=== PATIENT | female | born 2000 | race American Indian/Alaskan Native ===

== ENCOUNTER 2020-04-05 13:18 | Outpatient (CLI) | payer OTHER ==
[2020-04-05] MEDS ORDERED: ALBUTEROL 2.5 MG/3 ML NEBU IH ONE (14:20)
== END 2020-04-05 13:19 | disposition home or self-care (01) ==
LOC: PF 13:18
PROVIDERS: ATTEND Internal Medicine
DX: Z02.71 Encounter for disability determination (principal); F41.9 Anxiety disorder, unspecified; J45.909 Unspecified asthma, uncomplicated
CPT/HCPCS: 94060; 94640; 94729; A9270